=== PATIENT | male | born 1965 | race Caucasian/White ===

== ENCOUNTER 2023-11-24 07:27 | Outpatient (REF) | payer OTHER, SELFPAY ==
[2023-11-24 08:03] LABS: Estimated Average Glucose 180 mg/dL; Hemoglobin A1c % 7.9 % (<6.0)
== END 2023-11-24 07:28 | disposition home or self-care (01) ==
LOC: HO.LAB 07:27
PROVIDERS: Visit Provider Nurse Practitioner Family
DX: E11.9 Type 2 diabetes mellitus without complications (principal)
CPT/HCPCS: 36415; 83036

== ENCOUNTER 2025-06-28 07:27 | Day surgery (SDC) | payer OTHER, SELFPAY ==
--- OUTSIDE RECORDS SUMMARY | 2025-05-02 12:47 | XMS_ITS | Encounter Summary ---
Author Organization [employer] Address [address] [place] [address] 7 [place] [address] Care Team Providers Care Farm Helper Name Role Phone Unavailable Primary Care Provider Unavailabl e Encounter Details Date Type Department Care Team (Latest Contact Info) Description 10/01/2019 [facility], Provider, DDS Social History Tobacco Use Types Packs/Day Years Used Date Smoking Tobacco: Never Assessed Sex and Gender Information Value Date Recorded Sex Assigned at Male 01/13/2023 9:48 AM EDT Legal Sex Male 5:37 PM EDT Gender Identity Male 01/13/2023 9:48 AM EDT Sexual Orientation Straight 01/13/2023 9: 48 AM EDT documented as of this encounter Plan of Treatment Upcoming Encounters Date Type Department Care Team (Late st Contact Info) Description 05/30/2025 3:00 PM EDT Office Visit [facility] [address] [place] [address] Charley Akins documented as of this encounter Visit Diagnoses Not on filedocumented in this encounter
--- OUTSIDE RECORDS SUMMARY | 2025-05-02 12:47 | XMS_ITS | Encounter Summary ---
Author Organization [employer] Address [address] [place] [address] 7 [place] [address] Care Team Providers Care Corporate Training Manager Name Role Phone Unavailable Primary Care Provider Unavailabl e Encounter Details Date Type Department Care Team (Latest Contact Info) Description 01/21/2022 [facility] Dental, Provider, DDS Social [...] Description 05/30/2025 3:00 PM EDT Office Visit [facility] [address] [place] [address] Charley Akins documented as of this encounter Visit Diagnoses Not on filedocumented in this encounter
--- OUTSIDE RECORDS SUMMARY | 2025-05-02 12:47 | XMS_ITS | Patient Health Record ---
Author Organization [facility] Address [address] [place] [id number] Care Team Providers Care Clinical Laboratory Assistant Name Role Phone Kulwinder Austin M.D Primary Care Provider Stephon Berger Unavailable [phone] Allergies No Known Allergies Reason For Referral No Information Immunizations Vaccine Route Administration Date Status Comme nts Influenza Unknown 10/17/2018 Refused Influenza Unknown 03/13/2025 Refused Social History Tobacco Use: Social History Observation Description Date Details (start date - stop date) Former Smoker NA - NA Alcohol Screen Question Answer Notes Did you have a drink containing alcohol in the p ast year? No Points 0 Interpretation Negative Tobacco Control (Standard) Question Answer Notes Tobacco use: Former smoker Section Notes: Smoker 1 ppd; no alcohol--he raul up until approximately 01/2018 Nonsmoker; no alcohol- heavy up until approximately 2021 Problems Problem Type SNOMED Code ICD Code Onset Dates Problem Status W/U Status Risk Notes Problem Colon cancer screening (050070389) Colon cancer screening (Z12.11) Active confirmed Problem 650840310 Encounter for screening for malignant neoplasm of colon (Z12.11) Active confirmed Problem [id number] Preprocedural examination (Z01.818) Active confirmed Problem History of adenomatous polyp of colon (851177895) History of adenomatous polyp of colon (Z86.0101) Active confirmed Vital Signs Temperature 97.1 degrees Fahrenheit 03/13/2025 Blood pressure diastolic 01 mm Hg 03/13/2025 Height 72 in 03/13/2025 Blood pressure systolic 001 mm Hg 03/13/2025 Weight 160.4 lbs 03/13/2025 BMI 21.75 kg/m2 03/13/2025 Procedures Procedure Date Ordered Date Performed Result Body Sit e COLONOSCOPY 03/13/2025 N/A Encounters Encounter Location Date Provider Diagnosis [facility] [address] [facility] [address] [place] [address] 03/13/2025 Stephon Brandt History of adenomato us polyp of colon Z86.0101 ; Preprocedural examination Z01.818 and Colon cancer screening Z12.11 Assessments Encounter Date Diagnosis (ICD Code) Assessment Notes Treatment Notes Treatment Clinical Notes Section Notes 03/13/2025 Preprocedural examination (ICD-10 - Z01.818) Overall, Aneesh appears well. Given his age, personal history of a tubular normal removed over 5 years ago, and his last colonoscopy being over 5 years ago, I did recommend a follow-up colonoscopy for further screening purposes. We did review the rationale for this in regard to colon cancer prevention. Full consent has been obtained for this, including risks of bleeding and perforation. The procedure will be done with monitored anesthesia care. I did advise him to definitely call me with the name or names of his new diabetes regimen such that they can be adjusted prior to the procedure if need be. I did encourage him to remain abstinent from alcohol as well. Aneesh and his are comfortable with this plan. Thank you again for allowing me to precipitate in Aneesh's care. I shall continue to keep you advised of his progress. 03/13/2025 History of adenomatous polyp of colon (ICD-10 - Z86.0101) Overall, Aneesh appears well. Given his age, personal history of a tubular normal removed over 5 years ago, and his last colonoscopy being over 5 years ago, I did recommend a follow-up colonoscopy for further screening purposes. We did review the rationale for this in regard to colon cancer prevention. Full consent has been obtained for this, including risks of bleeding and perforation. The procedure will be done with monitored anesthesia care. I did advise him to definitely call me with the name or names of his new diabetes regimen such that they can be adjusted prior to the procedure if need be. I did encourage him to remain abstinent from alcohol as well. Aneesh and his are comfortable with this plan. Thank you again for allowing me to precipitate in Aneesh's care. I shall continue to keep you advised of his progress. 03/13/2025 Colon cancer screening (ICD-10 - Z12.11) Overall, Aneesh appears well. Given his age, personal history of a tubular normal removed over 5 years ago, and his last colonoscopy being over 5 years ago, I did recommend a follow-up colonoscopy for further screening purposes. We did review the rationale for this in regard to colon cancer prevention. Full consent has been obtained for this, including risks of bleeding and perforation. The procedure will be done with monitored anesthesia care. I did advise him to definitely call me with the name or names of his new diabetes regimen such that they can be adjusted prior to the procedure if need be. I did encourage him to remain abstinent from alcohol as well. Aneesh and his are comfortable with this plan. Thank you again for allowing me to precipitate in Aneesh's care. I shall continue to keep you advised of his progress. Plan Of Treatment Pending Test Test Name Order Date COLONOSCOPY 03/13/2025 Future Test Test Name Order Date COLONOSCOPY 10/17/2018 Next Appt Details Provider Name:Stephon Brandt , 06/28/2025 08:20:00 AM, [address] [place] [address] , [place], [place], [phone], Insurance Providers Payer Name Payer Address Payer Phone Subscriber Number Group Number Insured Name Patient Relationship to Insured Coverage Start Date Coverage End Date [employer] [place] [address] [address] [place] [address] [id number] Self - patient is the insured Medical (General) History Medical History History ICD Code NIDDM Denies LA,CVA,Lung disease,renal disease Alcohol abuse- EtOH-Hepatitis 2019- sobr iety x 3 years as of the 02/2025 OV Screening colonoscopy in July 2019 w ith removal of 1 tubular adenoma Surgical History Surgery Date(Month/Year)
--- OUTSIDE RECORDS SUMMARY | 2025-05-02 12:47 | XMS_ITS | Clinical Summary ---
Author Organization [employer] Address [address] [place] [address] [address] [place] [address] Care Team Providers Care Convex Grinder Name Role Phone Unavailable Primary Care Provider Unavailabl e Allergies No known active allergies Medications metFORMIN XR (Glucophage-XR) 500 MG 24 hr tablet Take 1,000 mg by mouth 2 times daily. 09/23/2023 Active glipiZIDE XL (Glucotrol XL) 10 MG 24 hr tablet TAKE 2 TABLETS EVERY DAY BY ORAL ROUTE IN THE MORNING FOR 90 DAYS. 08/30/2023 Active Social History Tobacco Use Types Packs/Day Years Used Date Smoking Tobacco: Every Day Cigarettes Smokeless Tobacco: Never Tobacco Cessation:Ready to Q uit: Not Asked; Counseling Given: Not Answered Alcohol Use Standard Drinks/Week Comments Never 0 (1 standard drink = 0.6 oz pur e alcohol) Sex and Gender Information Value Date Recorded Sex Assigned at Male 01/13/2023 9:48 AM EDT Legal Sex Male 5:37 PM EDT Gender Identity Male 01/13/2023 9:48 AM EDT Sexual Orientation Straight 01/13/2023 9: 48 AM EDT Plan of Treatment Upcoming Encounters Date Type Department Care Team (Late st Contact Info) Description 05/30/2025 3:00 PM EDT Office Visit [facility] [address] [place] [address] Charley Akins Health Maintenance Due Date Last Done Comments CT Colonography 1965 Colonoscopy 1965 Colorectal Cancer Screening 1965 Depression Screening 1965 FIT DNA/Cologuard 1965 FIT 1965 FOBT 1965 HIV Screening 1965 Lipid Panel 1965 SDOH Screening 1965 Sigmoidoscopy 1965 Disability Screening 1965 Alcohol/Substance Use Screening 1977 Hepatitis C Screening 1983 Pneumococcal Vaccine: 50+ Years (1 of 2 - PCV) 01/13/1984 Zoster Vaccines (1 of 2) 2015 COVID-19 Vaccine (1 - 2023- season) 2025 Influenza Vaccine (#1) 2025 Tobacco Screening 06/14/2025 06/14/2024 Dental Oral Exam 07/07/2025 01/03/2025, , 11/30/2023, Additional history exists Dental Prophylaxis 07/07/2025 01/03/2025, 1 , 11/30/2023, Additional history exists Dental X-Ray: Bitewings 01/04/2026 01/04/20 25, 11/30/2023, 07/22/2021, Additional history exists Dental X-Ray: Full Mouth 11/30/2026 024, 04/18/2018, 07/17/2013 DTaP/Tdap/Td Vaccines (3 - Td or Tdap) 11/28/2033 11/29/2023, 08/30/2013 RSV Patients and Patients Aged 60 years or older (1 - 1-dose 75+ series) 01/13/2040 HIB Vaccines Aged Out No longer eligi ble based on patient's age to complete this topic HPV Vaccines Aged Out No longer eligi ble based on patient's age to complete this topic Hepatitis A Vaccines Aged Out No long er eligible based on patient's age to complete this topic Hepatitis B Vaccines Aged Out No long er eligible based on patient's age to complete this topic IPV Vaccines Aged Out No longer eligi ble based on patient's age to complete this topic Meningococcal B Vaccine Aged Out No l onger eligible based on patient's age to complete this topic Meningococcal Vaccine Aged Out No brien katina eligible based on patient's age to complete this topic RSV under 20 months Aged Out No longe r eligible based on patient's age to complete this topic Rotavirus Vaccines Aged Out No longer eligible based on patient's age to complete this topic Procedures Procedure Name Priority Date/Time Associated Diagnosis Comments Full PROPHYLAXIS - ADULT Routine 025 4:00 PM EDT BITEWINGS - 4 RADIOGRAPHIC IMAGES Routine 01/03/2025 4:00 PM EDT PERIODIC ORAL EVALUATION - ESTABLISHED PATIENT Routine 01/03/2025 4:00 PM EDT INTRAORAL - COMPLETE SERIES OF RADIOGRAPHIC IMAGES Routine 11/30/2023 10:10 AM EDT from Last 3 Months or Most Recently Relevant to Health Maintenance Insurance [facility]
--- OUTSIDE RECORDS SUMMARY | 2025-05-02 12:47 | XMS_ITS | Encounter Summary ---
Author Organization [employer] Address [address] [place] [address] [address] [place] [address] Care Team Providers Care Furniture Fabricator Name Role Phone Unavailable Primary Care Provider Unavailabl e Encounter Details Date Type Department Care Team (Latest Contact Info) Description 10/25/2018 Abstract [facility] Dental, Provider, DDS Social [...] Description 05/30/2025 3:00 PM EDT Office Visit [place] [address] [place] [address] Charley Akins documented as of this encounter Visit Diagnoses Not on filedocumented in this encounter
--- NOTE | 2025-06-26 10:59 | HO.ANESPROP2 ---
Documented by User: Alicia Rubio NP 06/27/25 08:28 HPI - Anesthesia Eval Consult details Narrative: 60yo M for Colonoscopy [facility] Past Medical History Medical History Alcoholic hepatitis Alcohol dependence in remission Diabetes Surgical History Surgical History H/O colonoscopy Social History Social History Household Members: Spouse Patient Tobacco Use Status: Former Tobacco user Tobacco use type: Cigarette Use of substances other than those prescribed or required for medical reasons: No Advance Directives: No Advance Directives Information Provided: Yes Meds Allergies Allergy/AdvReac Type Severity Reaction Status Date / Time No Known Allergies (No Known Allergy Unverified 05/15/20 19:42 Allergies*) Home Medications ?Medication ?Instructions ?Recorded ?Confirmed ?Last Taken ?Type atorvastatin 20 mg tablet 20 mg PO DAILY 06/26/25 06/26/25 Unknown History Assessment and Plan Assessment Anesthesia Assessment: Chart Reviewed Documented by User: Idalia Davidson MD 06/28/25 08:25 [facility] Past Medical History Medical History Alcoholic hepatitis Alcohol dependence in remission Diabetes Surgical History Surgical History H/O colonoscopy History of Problems with Anesthesia: No Social History Social History Household Members: Spouse Patient Tobacco Use Status: Former Tobacco user Tobacco use type: Cigarette Use of substances other than those prescribed or required for medical reasons: No Advance Directives: No Advance Directives Information Provided: Yes Meds Allergies Allergy/AdvReac Type Severity Reaction Status Date / Time No Known Allergies (No Known Allergy Unverified 05/15/20 19:42 Allergies*) Home Medications ?Medication ?Instructions ?Recorded ?Confirmed ?Last Taken ?Type atorvastatin 20 mg tablet 20 mg PO DAILY 06/26/25 06/26/25 Unknown History Exam Airway Mallampati Class: II TM Dist: >3cm Neck ROM: Full Loose/Missing/Broken Teeth: No Heart: RRR Lungs: CTA Assessment and Plan Assessment Anesthesia Assessment: Anesthesia Plan Discussed Final Anesthetic Review History of Problems with Anesthesia: No NPO: Yes ASA Class: III Final Preanesthetic Review: Meds/Allgs Chart Reviewed, Consent Obtained/Reviewed and Anes Risks/Benef Reviewed Patient Risk: Intermediate Procedure Risk: Low Anesthetic Plan Anesthetic Plan: MAC: Disposition: Standard PACU
[2025-06-26 14:52] VITALS: BMI 21.8
[2025-06-28 08:10] VITALS: BMI 21.2
[2025-06-28 08:21] VITALS: BP 117/67; PULSE 80; RESP 16; TEMP 36.6; O2SAT 98
[2025-06-28] MEDS: Lactated Ringers 1,000 ML 100 ML IVCONT (08:22)
[2025-06-28 08:23] LABS: Glucose, Whole Blood 291 mg/dL (60-115)
[2025-06-28 09:29] VITALS: BP 100/67; PULSE 68; RESP 14; TEMP 36.1; O2SAT 99
--- NOTE | 2025-06-28 09:31 | P.BOP_ITS ---
Brief Operative Note Date of Service: 06/28/25 Pre-op diagnosis: Screening Post-op diagnosis: other (Colon polyp) Procedure: Colonoscopy to the cecum and TI with cold snare polypectomy Surgeon: Stephon Brandt MD Anesthesia: MAC Was an E Learning Manager used for this Procedure?: No Estimated blood loss (mL): 2.0 Pathology: other (A. Transverse colon polyp) Condition: stable Disposition: PACU
[2025-06-28 09:44] VITALS: BP 96/62; PULSE 65; RESP 19; TEMP 36.8; O2SAT 99
--- NOTE | 2025-06-28 10:12 | OP_ITS ---
DATE OF SERVICE: 06/28/2025 SURGEON: Stephon Brandt MD INDICATIONS: The patient presents for evaluation of personal history of tubular adenoma of the colon and colorectal cancer screening. Full consent has been obtained from him for this, including risks of bleeding and perforation. PREOPERATIVE DIAGNOSIS: POSTOPERATIVE DIAGNOSIS: PROCEDURE PERFORMED: ESTIMATED BLOOD LOSS: COMPLICATIONS: ANESTHESIA: Medication used, monitored anesthesia care. ASSISTANTS: SPECIMENS: PREOPERATIVE DIAGNOSES: Personal history of tubular adenoma of the colon, colorectal cancer screening. POSTOPERATIVE DIAGNOSES: Personal history of tubular adenoma of the colon, colorectal cancer screening, colon polyp, diverticulosis, and internal hemorrhoids. PROCEDURES PERFORMED: Colonoscopy to the cecum and terminal ileum with cold snare polypectomy. DESCRIPTION OF PROCEDURE: The patient was placed in the left lateral decubitus position. The digital rectal exam revealed no abnormalities. The Olympus video pediatric colonoscope was entered into the rectum and advanced easily to the cecum. Once in the cecum, I did identify normal-appearing cecal pouch with appendiceal orifice and a normal-appearing ileocecal valve. The terminal ileum was cannulated and appeared normal. Scope withdrawn back in the colon. The entire cecum and ileocecal valve appeared normal. There was transillumination of light deep in the right lower quadrant. The scope was slowly withdrawn assessing all mucosal surfaces carefully. Preparation was excellent. In the proximal transverse colon was a flat, but raised 6 mm polyp, which was removed by cold snare polypectomy and recovered by suction. The polypectomy site appeared clean, without any sign of residual polyp nor significant bleeding. I did not visualize any other polyps, colitis, nor angiodysplasia. There was a mild amount of sigmoid diverticulosis. In the rectum, scope was retroflexed visualizing internal hemorrhoids, but no other pathology. The rectal mucosa appeared normal. The scope was straightened and withdrawn from the patient. He tolerated the procedure well and was returned to the recovery area in stable condition. IMPRESSION: 1. Colon polyp. 2. Diverticulosis. 3. Internal hemorrhoids. PLAN: The results of the pathology will be checked. I would recommend another colonoscopy in 5 years for further screening. He was advised not to use any aspirin nor NSAIDs for 1 week. He will otherwise see me on a p.r.n. basis. MD JEANIE Lee/JULIEN / [id number] LIZ
== END 2025-06-28 10:28 | disposition home or self-care (01) ==
PROVIDERS: Visit Provider Internal Medicine
PROC: 0DJD8ZZ Inspection of Lower Intestinal Tract, Via Natural or Artificial Opening Endoscopic (ICD-10-PCS; CPT 45378; principal; 2025-06-28 08:20)
DX: Z12.11 Encounter for screening for malignant neoplasm of colon (principal); Z86.0101 Personal history of adenomatous and serrated colon polyps; K64.8 Other hemorrhoids; K57.30 Diverticulosis of large intestine without perforation or abscess without bleeding; D12.3 Benign neoplasm of transverse colon; E11.9 Type 2 diabetes mellitus without complications
CPT/HCPCS: 45380; 82947; 88305; J2250; J2704